=== PATIENT | female | born 1990 | race American Indian/Alaskan Native ===

== ENCOUNTER 2020-07-29 17:28 | Inpatient (IN) | payer MEDICAID ==
[2020-07-29] MEDS ORDERED: LACTATED RINGERS 500 ML IV ONE (17:52)
[2020-07-29 18:38] LABS: Bacteria,Urine 1+ /HPF (Negative); Bilirubin,Urine NEG (Negative); Blood,Urine LG (Negative); Color,Urine Straw (Yellow); Protein,Urine <15 mg/dL mg/dL (Negative); Urobilinogen,Urine < 2.0 mg/dL (<2.0)
--- NOTE | 2020-07-29 18:40 | Ultrasound Report ---
Limited OB ultrasound INDICATION: Rule out abruption FINDINGS: Single live intrauterine . Transverse position. Placenta appears heterogeneous how ever no definite abruption or separation is seen. IMPRESSION: Placenta is heterogeneous however no definite abruption is seen. Signer Name: Giovany Rai MD Signed: 07/29/2020 6:35 PM Workstation Name: [id number]
[2020-07-29 18:51] LABS: Basophils % (Auto) 0.4 % (0.0-1.8); Eosinophils # (Auto) 0.1 K/mm3 (0.0-0.4); Eosinophils % (Auto) 0.7 % (0.0-4.3); Hematocrit 33.6 % (30.3-42.9); Hemoglobin 11.1 gm/dl (10.1-14.3); Lymphocytes % (Auto) 19.6 % (13.4-35.0); Mean Corpuscular HGB Conc 33 % (30-34); Mean Corpuscular Volume 82 fl (79-97); Monocytes # (Auto) 0.8 K/mm3 (0.0-0.8); Monocytes % (Auto) 7.7 % (0.0-7.3); Platelet Count 301 K/mm3 (140-440); Red Blood Count 4.08 M/mm3 (3.65-5.03); Red Cell Distribution Width 15.3 % (13.2-15.2)
[2020-07-29 19:05] LABS: Amphetamine Screen,Urine Negative; Benzodiazepines Screen,Urine Negative; Cocaine Screen,Urine Negative; Methadone Screen,Urine Negative; Opiate Screen,Urine Negative
[2020-07-29 19:17] LABS: Hepatitis C Virus Antibody Non-Reactive (NonReactive)
[2020-07-29 19:19] LABS: Cannabinoid Screen,Urine Positive
--- NOTE | 2020-07-29 19:24 | History and Physical Report ---
History of Present Illness Date of examination: 07/29/20 Date of admission: 07/29/20 Chief complaint: pelvic pain and bleeding. History of present illness: Patient is a 29-year-old black female who presented to triage by ambulance. This is her third she has had 1 miscarriage and one ectopic . By ultrasound the patient is 22 weeks and 1 day with a demise. She did have complaint of -induced hypertension she was on labetalol she claims her labetalol was not working for her. The patient denies any other medical illnesses before this . Family medical history is noncontributory. Social history patient is single. Review of systems is noncontributory. When the patient was examined she was told that she had a demise and when I checked her there was a significantly fetus in her vagina and the cervix was dilated probably 5 to 6 cm. No evidence of bag of quach intact. Past History Past Surgical History: other (ectopic .) Family/Genetic History: none Social history: single - Obstetrical History : 3 Para: 10 Hx # Term Pregnancies: 0 Number of Pregnancies: 1 Spontaneous Abortions: 1 Number of Living Children: 0 Medications and Allergies Allergies Allergy/AdvReac Type Severity Reaction Status Date / Time No Known Allergies Allergy Verified 08/01/19 09:31 Home Medications Medication Instructions Recorded Confirmed Last Taken Type Vitamin 1 tab PO DAILY 07/29/20 07/29/20 07/28/20 History labetaloL 1 tab PO BID 07/29/20 07/29/20 07/28/20 History Active Meds: Active Medications Labetalol HCl (Labetalol 100 Mg Tab) 100 mg PO BID ABRAHAM Review of Systems All systems: negative - Vital Signs Vital signs: Vital Signs Pulse Pulse Ox 63 100 07/29/20 17:35 07/29/20 17:35 Temp Pulse Resp BP Pulse Ox 98.6 F 68 20 159/108 100 07/29/20 17:49 07/29/20 18:19 07/29/20 17:49 07/29/20 18:19 07/29/20 18:17 - Physical Exam Breasts: Cardiovascular: Regular rate, Normal S1, Normal S2 Lungs: Positive: Clear to auscultation Abdomen: Positive: normal appearance, soft, normal bowel sounds. Negative: distention, tenderness Genitourinary (Female): Positive: normal external genitalia Vulva: both: normal Vagina: Positive: normal moisture. Negative: discharge Cervix: Negative: lesion, discharge Uterus: Positive: normal size, enlarged, normal contour Adnexa: both: normal Anus/Rectum: Positive: normal perianal skin, heme negative. Negative: rectal mass, hemorrhoids Extremities: Positive: normal Deep Tendon Reflex Grade: Normal +2 - Obstetrical FHR: other (no heart tones) station: in vagina Results Result Diagrams: 07/29/20 18:30 Abnormal lab results 07/29/20 07/29/20 Range/Units 18:30 Unknown MCH 27 L (28-32) pg RDW 15.3 H (13.2-15.2) % [place] % (Auto) 7.7 H (0.0-7.3) % Seg Neutrophils % 71.6 H (40.0-70.0) % Urine pH 8.0 H (5.0-7.0) All other labs normal. Assessment and Plan demise at 22 weeks. remove fetus an placenta from vagina. - Patient Problems (1) demise Onset Date: ~07/29/20 Current Visit: Yes Status: Acute Plan to address problem: remove gestation from vagina.
[2020-07-29] MEDS ORDERED: TERBUTALINE 1 MG/1 ML INJ SUB-Q PRN (19:30)
[2020-07-29] MEDS ORDERED: ePHEDrine SULFATE 50 MG/1 ML INJ IV PRN (19:30)
[2020-07-29] MEDS ORDERED: fentaNYL 100 MCG/2 ML INJ IV PRN (19:30)
[2020-07-29] MEDS ORDERED: BUTORPHANOL 2 MG/1 ML INJ ONE (19:30)
[2020-07-29] MEDS ORDERED: LIDOCAINE (2%) 20 MG/1 ML VIAL 20 ML MDV INFILTRATI ONE (19:30)
[2020-07-29] MEDS ORDERED: BUTORPHANOL 2 MG/1 ML INJ IV PRN ×2 (19:30→19:40)
[2020-07-29] MEDS ORDERED: MINERAL OIL 30 ML ORAL LIQD PO PRN (19:30)
[2020-07-29] MEDS ORDERED: OXYTOCIN DRIP 30 UNITS/500 ML BAG IV SCH ×2 (20:00→21:00)
[2020-07-29] MEDS ORDERED: PROMETHAZINE 25 MG RECT SUPP PR PRN (20:05)
[2020-07-29] MEDS ORDERED: HYDROcodone/ACETAMINOPHEN 5-325 MG TAB PO PRN (20:05)
[2020-07-29] MEDS ORDERED: LANOLIN/ZINC/DIMETHICONE (LANSINOH) 7 GM TP PRN (20:05)
[2020-07-29] MEDS ORDERED: ONDANSETRON 4 MG/2 ML INJ IV PRN (20:05)
[2020-07-29] MEDS ORDERED: diphenhydrAMINE 25 MG CAP PO PRN (20:05)
[2020-07-29] MEDS ORDERED: MAGNESIUM HYDROXIDE (MOM) ORAL LIQD UDC PO PRN (20:05)
[2020-07-29] MEDS ORDERED: PROMETHAZINE 25 MG TAB PO PRN (20:05)
[2020-07-29] MEDS ORDERED: WITCH HAZEL/ GLYCERIN PAD TP PRN (20:05)
[2020-07-29] MEDS ORDERED: ACETAMINOPHEN 325 MG TAB PO PRN (20:05)
--- NOTE | 2020-07-29 20:05 | Procedure Note ---
Date of procedure: 07/29/20 Pre-op diagnosis: 22 week iup, demise, PIH Post-op diagnosis: same Procedure: , DELOVERY OF PLACENTA AND CORD Anesthesia: none Surgeon: TRINA PONCE Estimated blood loss: 50-100ml Pathology: list (FETUS AND PLACENTA AND CORD.) Specimen disposition: to lab Condition: stable Disposition: observation
[2020-07-29] MEDS ORDERED: LACTATED RINGERS 1,000 ML IV SCH (20:30)
[2020-07-29] MEDS: IBUPROFEN 600 MG TAB PO SCH (23:47)
[2020-07-30] MEDS: IBUPROFEN 600 MG TAB PO SCH ×4 (03:00→23:41)
[2020-07-30 11:32] LABS: Hematocrit 30.3 % (30.3-42.9); Hemoglobin 10.1 gm/dl (10.1-14.3)
--- NOTE | 2020-07-30 12:13 | Progress Note ---
Assessment and Plan A: day 1 S/P for demise. Anemia. Hypertension. UDS positive for marijuana. Grief process. P: Increased Labetalol to 200 mg po BID. Informed MD of increased dose. CMP ordered. hotel general manager to see patient to evaluate grief process and grief counseling. hotel general manager has already addressed + UDS. Iron supplementation. Subjective - Subjective Date of service: 07/30/20 Principal diagnosis: day 1 S/P demise Interval history: Patient denies headache, visual disturbance, nausea or vomiting, swelling, abdominal pain. She reports a small amount of lochia. She had a demise followed by yesterday. Voiding without difficulty. Tolerating a regular diet. Has hypertension and will increase Labetalol to 200 mg po BID. Was seen by foster care case manager for positive UDS (+ marijuana); needs grief counseling also. Patient reports: appetite normal, voiding normally, pain well controlled, flatus, ambulating normally, no dizzy ambulation, no nauseated [place]ine: other (22 week demise) Objective - Vital Signs Latest vital signs: Vital Signs Temp Pulse Resp BP BP Pulse Ox 07/30/20 09:26 74 137/104 07/30/20 09:16 97.9 F 74 20 137/104 100 07/30/20 04:31 98.7 F 73 16 136/79 07/30/20 00:18 81 143/89 07/29/20 22:17 75 147/99 07/29/20 20:40 68 149/90 149/90 07/29/20 20:25 68 139/88 07/29/20 20:10 71 168/104 07/29/20 19:54 97.8 F 83 18 155/99 07/29/20 19:20 71 136/101 07/29/20 18:19 68 159/108 07/29/20 18:17 69 100 07/29/20 18:12 71 100 07/29/20 18:01 68 100 07/29/20 17:56 76 100 07/29/20 17:51 71 100 07/29/20 17:49 98.6 F 69 20 155/101 99 07/29/20 17:47 71 155/101 07/29/20 17:46 71 100 07/29/20 17:35 63 100 Intake and Output 07/29/20 07/30/20 07/30/20 23:59 07:59 15:59 Other: Weight 101.605 kg - Exam Cardiovascular: Present: Regular rate Lungs: Present: Clear to auscultation Abdomen: Present: normal appearance, soft. Absent: distention, tenderness, guarding, rigidity Uterus: Present: normal, firm, fundal height below umbilicus. Absent: bogginess, tenderness Extremities: Present: normal. Absent: tenderness, edema - Labs Labs: Abnormal lab results 07/29/20 07/29/20 Range/Units 18:30 Unknown MCH 27 L (28-32) pg RDW 15.3 H (13.2-15.2) % [place] % (Auto) 7.7 H (0.0-7.3) % Seg Neutrophils % 71.6 H (40.0-70.0) % Urine pH 8.0 H (5.0-7.0)
[2020-07-30 16:07] LABS: Alanine Aminotransferase 7 units/L (7-56); Albumin 3.1 g/dL (3.9-5); Basophils # (Auto) 0.1 K/mm3 (0.0-0.1); Basophils % (Auto) 0.9 % (0.0-1.8); Blood Urea Nitrogen 4 mg/dL (7-17); Calcium 8.1 mg/dL (8.4-10.2); Eosinophils # (Auto) 0.1 K/mm3 (0.0-0.4); Eosinophils % (Auto) 1.1 % (0.0-4.3); Hematocrit 29.8 % (30.3-42.9); Hemoglobin 9.9 gm/dl (10.1-14.3); Hemolysis Index 2; Lymphocytes # (Auto) 2.4 K/mm3 (1.2-5.4); Lymphocytes % (Auto) 32.5 % (13.4-35.0); Mean Corpuscular HGB Conc 33 % (30-34); Mean Corpuscular Volume 83 fl (79-97); Monocytes # (Auto) 0.6 K/mm3 (0.0-0.8); Monocytes % (Auto) 8.6 % (0.0-7.3); Platelet Count 278 K/mm3 (140-440); Red Cell Distribution Width 15.2 % (13.2-15.2)
[2020-07-30 16:12] LABS: BUN/Creatinine Ratio 8
[2020-07-30] MEDS: FERROUS SULFATE 325 MG TAB PO SCH (21:43)
--- NOTE | 2020-07-31 07:04 | Progress Note ---
Assessment and Plan A: day 2 S/P for demise. Anemia. Hypertension; BPs controlled on Labetalol 200 mg po BID. UDS positive for marijuana. Grief process. P: Continue Labetalol 200 mg po BID. MH to see patient. Has been seen by case management. Continue iron supplementation. Subjective - Subjective Date of service: 07/31/20 Principal diagnosis: day 2 S/P demise Interval history: Patient denies headache, visual disturbance, nausea or vomiting, swelling, abdominal pain. She reports a small amount of lochia. She had a demise followed by . Voiding without difficulty. Tolerating a regular diet. Has chronic hypertension; BPs controlled on Labetalol 200 mg po BID. Has seen case management; waiting to see MH (consult has been ordered). Patient reports: appetite normal, voiding normally, pain well controlled, flatus, ambulating normally, no dizzy ambulation, no nauseated Objective - Vital Signs Latest vital signs: Vital Signs Temp Pulse Resp BP BP Pulse Ox 07/31/20 04:59 98.4 F 76 18 125/82 100 07/31/20 00:26 98.6 F 80 18 118/72 99 07/30/20 23:41 20 07/30/20 21:45 77 150/88 07/30/20 15:04 98.5 F 75 18 143/89 100 07/30/20 12:36 76 147/102 07/30/20 12:18 98.8 F 76 20 147/102 100 07/30/20 09:26 74 137/104 07/30/20 09:16 97.9 F 74 20 137/104 100 Intake and Output 07/30/20 07/30/20 07/31/20 15:59 23:59 07:59 Intake Total 240 240 Balance 240 240 Intake: Intake, Free Water 240 240 Other: # Voids Void 2 1 - Exam Cardiovascular: Present: Regular rate Lungs: Present: Clear to auscultation Abdomen: Present: normal appearance, soft, normal bowel sounds. Absent: distention, tenderness, guarding, rigidity Uterus: Present: normal, firm, fundal height below umbilicus. Absent: bogginess, tenderness Extremities: Present: normal. Absent: tenderness - Labs Labs: Abnormal lab results 05/21/21 05/21/21 Range/Units 14:58 14:58 RBC 3.60 L (3.65-5.03) M/mm3 Hgb 9.9 L (10.1-14.3) gm/dl Hct 29.8 L (30.3-42.9) % [place] % (Auto) 8.6 H (0.0-7.3) % Chloride 108.3 H (98-107) mmol/L Carbon Dioxide 21 L (22-30) mmol/L BUN 4 L (7-17) mg/dL Creatinine 0.5 L (0.6-1.2) mg/dL Calcium 8.1 L (8.4-10.2) mg/dL Total Protein 5.7 L (6.3-8.2) g/dL Albumin 3.1 L (3.9-5) g/dL
[2020-07-31] MEDS: IBUPROFEN 600 MG TAB PO SCH ×2 (07:17→11:19)
[2020-07-31 09:03] VITALS: BP 146/84
--- NOTE | 2020-07-31 09:45 | Consultation ---
History of Present Illness - Reason for Consult Consult date: 07/31/20 Reason for consult: demise - History of Present Psychiatric Illness Per OB Note: Patient is a 29-year-old black female who presented to triage by ambulance. This is her third she has had 1 miscarriage and one ectopic . By ultrasound the patient is 22 weeks and 1 day with a demise. She did have complaint of -induced hypertension she was on la betalol she claims her labetalol was not working for her. Aditya Lopez is a 29y/o female patient who presented to the hospital with bleeding and pain. The patient had is 1 day with demise according to OB note. During my evaluation of the patient, she is lying in bed asleep. She says she was given Benadryl and is tired. She says she feels okay, despite losing the baby. She is calm and cooperative. She denies any past history of psych or being on any psych medications. She also denies any SI/HI, or ever having any attempt of suicide in the past. The patient denies hallucinations of any kind. I spoke with the patient about the benefit of therapy to help her deal with her loss and get some emotions out, and possibly staring on an antidepressant. The patient states, "I don't need therapy or medication. I'm actually okay." PAST PSYCHIATRIC HISTORY Diagnoses: Denies Suicide attempts or Self-harm behavior: denies Prior psychiatric hospitalizations: Denies Substance Abuse history: denies Previous psychiatric medications tried: Denies Outpatient treatment: Denies PAST MEDICAL HISTORY: None reported Family Psychiatric History: None reported or documented SOCIAL HISTORY Marital Status: Single Living Arrangements: with family Employment Status: employed Access to guns/weapons: denies Education: high school History of Abuse: None reported Legal History: None reported REVIEW OF SYSTEMS Constitutional: Negative for weight loss ENT: Negative for stridor Respiratory: Negative for cough or hemoptysis All other systems reviewed and are negative MENTAL STATUS EXAMINATION General Appearance and Behavior: Age appropriate, good hygiene, wearing appropriate clothes, calm, cooperative, sleeping Cooperation: Participating/engaged Mood: "okay" Affect and affective range: congruent with mood Thought Process: goal directed Thought Content: None Speech: normal tone and pace Suicidal Ideation: Denies Homicidal Ideation: Denies Hallucinations: Denies Delusions: None elicited Impulse Control: Unimpaired Insight and Judgment: Normal insight and judgment, Memory: Limited Attention: Undivided attention Orientation: Alert, oriented Assessment (1) Mental Health Eval Treatment Plan No medications prescribed Sitter: per primary Medical: Per primary Disposition: Do not recommend acute psychiatric treatment. The patient understands if suicidal thoughts or fear of endangerment arise she is to seek immediate assistance including but not limited to 911/ER or crisis hotline. Vp Product to give the patient resources for outpatient psych, and CBT The patient to follow up with outpatient psych in 7 to 14 days upon discharge Will sign off. Thank you for this consult Case staffed with Dr. Serrato Medications and Allergies Allergies Allergy/AdvReac Type Severity Reaction Status Date / Time No Known Allergies Allergy Verified 08/01/19 09:31 Home Medications Medication Instructions Recorded Confirmed Last Taken Type Vitamin 1 tab PO DAILY 07/29/20 07/29/20 07/28/20 History labetaloL 1 tab PO BID 07/29/20 07/29/20 07/28/20 History Ibuprofen [Motrin] 600 mg PO Q8H PRN #30 tablet 07/31/20 Unknown Rx labetaloL [Labetalol 200mg TAB] 200 mg PO BID #60 tablet 07/31/20 Unknown Rx Active Meds: Active Medications Acetaminophen (Acetaminophen 325 Mg Tab) 650 mg PO Q4H PRN PRN Reason: Pain MILD(1-3)/Fever >100.5/CONNELL Hydrocodone Bitart/Acetaminophen (Hydrocodone/Acetaminophen 5-325 Mg Tab) 2 each PO Q6H PRN PRN Reason: Pain, Moderate (4-6) Bisacodyl (Bisacodyl 10 Mg Rect Supp) 10 mg LA BID PRN PRN Reason: Constipation Diphenhydramine HCl (Diphenhydramine 25 Mg Cap) 25 mg PO Q6H PRN PRN Reason: Itching Last Admin: 07/30/20 21:45 Dose: 25 mg Documented by: Ephedrine Sulfate (Ephedrine Sulfate 50 Mg/1 Ml Inj) 10 mg IV Q2M PRN PRN Reason: Hypotension Fentanyl (Fentanyl 100 Mcg/2 Ml Inj) 100 mcg IV Q2H PRN PRN Reason: Pain,Severe (7-10) LABOR PAIN Ferrous Sulfate (Ferrous Sulfate 325 Mg Tab) 325 mg PO BID ABRAHAM Last Admin: 07/30/20 21:43 Dose: 325 mg Documented by: Oxytocin/Sodium Chloride (Pitocin/Ns 30 Unit/500ml) 30 units in 500 mls @ 2 mls/hr IV TITR ABRAHAM; Protocol Lactated Ringer's (Lactated Ringers) 1,000 mls @ 125 mls/hr IV DIRECT ABRAHAM Oxytocin/Sodium Chloride (Pitocin/Ns 30 Unit/500ml) 30 units in 500 mls @ 40 mls/hr IV TITR ABRAHAM; Protocol Ibuprofen (Ibuprofen 600 Mg Tab) 600 mg PO Q6H ABRAHAM Last Admin: 07/31/20 07:17 Dose: Not Given Documented by: Labetalol HCl (Labetalol 200 Mg Tab) 200 mg PO BID ABRAHAM Last Admin: 07/30/20 21:45 Dose: 200 mg Documented by: Magnesium Hydroxide (Magnesium Hydroxide (Mom) Oral Liqd Udc) 30 ml PO HS PRN PRN Reason: Constipation Multi-Ingredient Ointment (Lanolin/Zinc/Dimethicone (Lansinoh) 7 Gm) 1 applic TP PRN PRN PRN Reason: Sore Nipples Ondansetron HCl (Ondansetron 4 Mg/2 Ml Inj) 4 mg IV Q8H PRN PRN Reason: Nausea And Vomiting Promethazine HCl (Promethazine 25 Mg Rect Supp) 25 mg LA Q6H PRN PRN Reason: Nausea And Vomiting Promethazine HCl (Promethazine 25 Mg Tab) 25 mg PO Q6H PRN PRN Reason: Nausea And Vomiting Sodium Chloride (Sodium Chloride 0.9% 10 Ml Flush Syringe) 10 ml IV PRN ABRAHAM Witch Leia/Glycerin (Witch Leia/ Glycerin Pad) 1 each TP PRN PRN PRN Reason: Hemorrhoid/cleansing/soothing Mental Status Exam - Vital signs Last Vital Signs Temp 97.8 F 07/31/20 08:57 Pulse 65 07/31/20 08:57 Resp 17 07/31/20 08:57 BP 146/84 07/31/20 08:57 Pulse Ox 100 07/31/20 08:57 Results Result Diagrams: 07/30/20 14:58 07/30/20 14:58 Abnormal lab results 07/30/20 07/30/20 Range/Units 14:58 14:58 RBC 3.60 L (3.65-5.03) M/mm3 Hgb 9.9 L (10.1-14.3) gm/dl Hct 29.8 L (30.3-42.9) % [place] % (Auto) 8.6 H (0.0-7.3) % Chloride 108.3 H (98-107) mmol/L Carbon Dioxide 21 L (22-30) mmol/L BUN 4 L (7-17) mg/dL Creatinine 0.5 L (0.6-1.2) mg/dL Calcium 8.1 L (8.4-10.2) mg/dL Total Protein 5.7 L (6.3-8.2) g/dL Albumin 3.1 L (3.9-5) g/dL All other labs normal.
--- NOTE | 2020-07-31 10:54 | Discharge Summary ---
Providers - Providers Date of Admission: 07/29/20 19:18 Date of discharge: 07/31/20 Attending physician: TRINA PONCE MD 07/30/20 09:58 Consult to Case Management [CONS] Routine Services Needed at Discharge: Other Notified:: PALLAVI Phone number called:: [phone] Was contact made?: Yes If yes, spoke with:: Manjit Time called:: 09:55 Additional Physician Instructions: + THC 07/30/20 12:03 Consult to Case Management [CONS] Routine Services Needed at Discharge: Staffing Specialist Notified:: PALLAVI Phone number called:: [phone] Was contact made?: Yes If yes, spoke with:: Manjit Time called:: 12:27 Comment:: Grief; demise 07/30/20 12:29 Consult to Mental Health [CONS] Routine Reason For Exam: Grief process; had demise Primary care physician: TRINA PONCE MD Hospitalization Reason for admission: IUFD Condition at discharge: Stable Disposition: DC-01 TO HOME OR SELFCARE Plan - Discharge Medications Prescriptions: labetaloL [Labetalol 200mg TAB] 200 mg PO BID #60 tablet Ibuprofen [Motrin] 600 mg PO Q8H PRN #30 tablet PRN Reason: Pain - Provider Discharge Summary Activity: no sex for 6 weeks Additional instructions: [] Smoking cessation referral if applicable(refer to patient education folder for contact #) [] Refer to [facility] Booklet Call your doctor immediately for: * Fever > 100.5 * Heavy vaginal bleeding ( >1 pad per hour) * Severe persistent headache * Shortness of breath * Reddened, hot, painful area to leg or breast * Drainage or odor from incision. * Keep incision clean and dry at all times and follow doctor's instructions regarding bathing/showering - Follow up plan Follow up: TRINA PONCE MD [Primary Care Provider] - 7 Days
[2020-07-31] MEDS: FERROUS SULFATE 325 MG TAB PO SCH (11:19)
== END 2020-07-31 12:28 | disposition home or self-care (01) | DRG 775 ==
LOC: TRG 17:28 → APU 17:29 → OBSVTOIN 19:18 → LD 19:18 → TRG 19:18 → OB 07-30 00:56
PROC: 10E0XZZ Delivery of Products of Conception, External Approach (ICD-10-PCS; principal; 2020-07-29)
DX: O36.4XX0 Maternal care for intrauterine death, not applicable or unspecified (principal); O26.892 Other specified pregnancy related conditions, second trimester; Z20.822 Contact with and (suspected) exposure to COVID-19; O13.2 Gestational [pregnancy-induced] hypertension without significant proteinuria, second trimester; O99.012 Anemia complicating pregnancy, second trimester; D64.9 Anemia, unspecified; O99.322 Drug use complicating pregnancy, second trimester; F12.90 Cannabis use, unspecified, uncomplicated; Z87.59 Personal history of other complications of pregnancy, childbirth and the puerperium; Z79.899 Other long term (current) drug therapy; Z3A.22 22 weeks gestation of pregnancy; Z37.1 Single stillbirth
CPT/HCPCS: 36415; 59025; 76815; 80053; 80307; 81001; 85014; 85018; 85025; 86592; 86706; 86762; 86803; 86850; 86900; 86901; 87806; 88305; G0378; J7120; U0003